=== PATIENT | male | born 1955 | race African-American/Black ===

== ENCOUNTER 2017-01-30 08:02 | Day surgery (SDC) | payer OTHER ==
[~2017-01-30] VITALS: Ht 160 cm; Wt 65.0 kg
[2017-01-30] MEDS ORDERED: NAPROSYN500 MG PO (08:22)
[2017-01-30] MEDS ORDERED: AMLODIPINE BESYL5 MG PO (08:22)
[2017-01-30] MEDS ORDERED: IBUPROFEN800 MG PO (08:22)
[2017-01-30] MEDS ORDERED: TYLENOL WITH C1 EACH PO (08:23)
[2017-01-30] MEDS ORDERED: METOPROLOL TART50 MG PO (08:24)
[2017-01-30] MEDS ORDERED: METOPROLOL TART25 MG PO (08:25)
[2017-01-30 10:52] VITALS: BP 177/114
[2017-01-30 10:54] VITALS: BP 163/112
[2017-01-30 11:00] VITALS: BP 159/105
[2017-01-30 11:21] VITALS: BP 163/104
== END 2017-01-30 11:27 | disposition home or self-care (01) ==
LOC: PAIN 08:02 → SDC 13:45
DX: M50.122 Cervical disc disorder at C5-C6 level with radiculopathy (principal); G89.29 Other chronic pain; M54.2 Cervicalgia; M51.36 Other intervertebral disc degeneration, lumbar region; M79.1 Myalgia; I10 Essential (primary) hypertension; F17.210 Nicotine dependence, cigarettes, uncomplicated
CPT/HCPCS: 93005; J0360; J1030; J2250; J3010

== ENCOUNTER 2017-05-08 05:50 | Observation (INO) | payer OTHER ==
[~2017-05-08] VITALS: Ht 160 cm; Wt 65.1 kg
[~2017-05-08 05:50] MED LIST: AMLODIPINE BESYL5 MG PO; IBUPROFEN800 MG PO; METOPROLOL TART25 MG PO; METOPROLOL TART50 MG PO; NAPROSYN500 MG PO; TYLENOL WITH C1 EACH PO
[2017-05-08 06:18] LABS: HEMATOCRIT 31.8 % (38.0-50.0); MCH 35.9 PG (29.0-34.0); MCHC 34.6 G/DL (30.0-36.0); MCV 103.9 FL (86-99); MEAN PLAT.VOLUME 9.1 uM^3 (9.0-12.4); PLATELET COUNT 106 K/uL (156-360); RBC DIS.WIDTH-CV 13.8 % (11.8-14.6); RBC DIS.WIDTH-SD 53.1 % (39-53); RED BLOOD COUNT 3.06 M/uL (4.00-5.50); WHITE BLOOD COUNT 2.7 K/uL (4.1-10.2)
[2017-05-08 06:32] LABS: CHLORIDE 108 mEq/L (99-109); POTASSIUM 3.7 mEq/L (3.7-5.4); SODIUM 142 mEq/L (136-147)
[2017-05-08 06:34] LABS: GLUCOSE 96 mg/dL (70-99)
[2017-05-08 06:35] LABS: ANION GAP 12 MEQ/L (2-14)
[2017-05-08 06:38] LABS: GFR ESTIMATE (CALCULATED) > 59 mL/min/
[2017-05-08 06:39] LABS: UREA NITROGEN (BUN) 16 mg/dL (9-23)
[2017-05-08 06:43] LABS: TROP-I INTERPRETATION NEGATIVE; TROPONIN-I 0.04 ng/mL (0.0-0.30)
[2017-05-08 11:07] VITALS: BP 181/107
[2017-05-08 13:55] LABS: MAGNESIUM 1.9 mg/dL (1.3-2.7)
[2017-05-08 14:12] LABS: HDL CHOLESTEROL 68 MG/DL (Desirable>=40); LDL CHOLESTEROL 105 mg/dL (Desirable<100); NON-HDL CHOLESTEROL 122 mg/dL (Desirable<160); TOTAL CHOLESTEROL 190 mg/dL (Desirable<200); TRIGLYCERIDES 83 MG/DL (Normal: <150)
[2017-05-08 15:32] VITALS: BP 146/91
[2017-05-08 16:54] LABS: TROP-I INTERPRETATION NEGATIVE; TROPONIN-I 0.04 ng/mL (0.0-0.30)
[2017-05-08 19:15] VITALS: BP 165/91
[2017-05-08 20:13] LABS: AMPHETAMINES QUANT VALUE 0 NG/ML; BARBITUATES QUANT VALUE 0 NG/ML; BENZODIAZEPINES QUANT VALUE 0 NG/ML; BENZODIAZEPINES, URINE SCREEN Negative (200 ng/mL); OPIATES QUANTITATIVE VALUE 0 NG/ML; PHENCYCLIDINE QUANT VALUE 0 NG/ML
[2017-05-08 21:12] VITALS: BP 163/74
[2017-05-08 22:36] LABS: TROP-I INTERPRETATION NEGATIVE; TROPONIN-I 0.02 ng/mL (0.0-0.30)
[2017-05-09 00:10] VITALS: BP 178/110
[2017-05-09 01:00] VITALS: BP 150/90
[2017-05-09 03:56] VITALS: BP 170/90
[2017-05-09 06:22] LABS: TROP-I INTERPRETATION NEGATIVE; TROPONIN-I 0.02 ng/mL (0.0-0.30)
[2017-05-09 06:24] VITALS: BP 148/95
[2017-05-09 07:23] VITALS: BP 141/93
[2017-05-09] MEDS ORDERED: DICYCLOMINE HCL10 MG PO (10:30)
[2017-05-09] MEDS ORDERED: TIZANIDINE HCL2 M1 PO (10:57)
[2017-05-09] MEDS ORDERED: GABAPENTIN400 MG PO (10:57)
== END 2017-05-09 13:30 | disposition home or self-care (01) ==
LOC: EME → EDBD 05:50 → EDOF 09:24 → 5WEST 09:24 → ENRESERV 09:36 → 5WEST 11:03 → ENPENDDIS 05-09 → 5WEST 05-09 13:30
PROVIDERS: Internal Medicine; Internal Medicine Cardiovascular Disease
DX: R07.9 Chest pain, unspecified (principal); R94.31 Abnormal electrocardiogram [ECG] [EKG]; F10.20 Alcohol dependence, uncomplicated; F14.10 Cocaine abuse, uncomplicated; F12.10 Cannabis abuse, uncomplicated; F17.210 Nicotine dependence, cigarettes, uncomplicated; I10 Essential (primary) hypertension; D61.818 Other pancytopenia; J45.909 Unspecified asthma, uncomplicated; Z82.49 Family history of ischemic heart disease and other diseases of the circulatory system
CPT/HCPCS: 71020; 80048; 80061; 80306 90; 83735; 84484; 85027; 93005; 93306; 99281; 99285; G0378; J0360